=== PATIENT | female | born 1995 | race Caucasian/White ===

== ENCOUNTER 2017-08-17 09:11 | Emergency (ER) | payer OTHER ==
[~2017-08-17] VITALS: Ht 160 cm; Wt 120.2 kg
[~2017-08-17 09:11] MED LIST: Catapres0.1 MG PO; METPHE10 PO
[2017-08-17] MEDS ORDERED: Esgic Tablet1 EACH PO (09:59)
[2018-04-03] MEDS ORDERED: PARO20 PO (08:34)
[2018-04-03] MEDS ORDERED: CLON.1 PO (08:34)
[2018-04-03] MEDS ORDERED: BUTALB-ACETAMI1 EAC2 PO (08:35)
[2018-04-03] MEDS ORDERED: BUTALBITAL-ACE1 EACH PO (08:35)
== END 2017-08-17 10:06 | disposition home or self-care (01) ==
LOC: ER 09:11
DX: G43.909 Migraine, unspecified, not intractable, without status migrainosus (principal); J06.9 Acute upper respiratory infection, unspecified; Z79.899 Other long term (current) drug therapy
CPT/HCPCS: 87081; 87430; 99283

== ENCOUNTER 2017-08-24 02:33 | Emergency (ER) | payer OTHER ==
[~2017-08-24] VITALS: Ht 160 cm; Wt 122.5 kg
[~2017-08-24 02:33] MED LIST changes: +Esgic Tablet1 EACH PO
[2017-08-24] MEDS ORDERED: Vibramycin100 MG PO (02:57)
[2018-04-03] MEDS ORDERED: PARO20 PO (08:34)
[2018-04-03] MEDS ORDERED: CLON.1 PO (08:34)
[2018-04-03] MEDS ORDERED: BUTALBITAL-ACE1 EACH PO (08:35)
[2018-04-03] MEDS ORDERED: BUTALB-ACETAMI1 EAC2 PO (08:35)
== END 2017-08-24 03:10 | disposition home or self-care (01) ==
LOC: ER 02:33
DX: N61.1 Abscess of the breast and nipple (principal); F41.9 Anxiety disorder, unspecified; Z79.899 Other long term (current) drug therapy
CPT/HCPCS: 99282

== ENCOUNTER 2017-09-22 11:07 | Emergency (ER) | payer OTHER ==
[~2017-09-22] VITALS: Ht 160 cm; Wt 122.5 kg
[~2017-09-22 11:07] MED LIST changes: +Vibramycin100 MG PO
[2017-09-22 12:24] LABS: Influenza A Negative (NEGATIVE); Influenza B Negative (NEGATIVE)
[2017-09-22] MEDS ORDERED: Cheratussin AC118 ML PO (12:31)
[2017-09-22] MEDS ORDERED: ALBU90OI INH (12:31)
[2017-09-22] MEDS ORDERED: Prednisone20 MG PO (12:31)
[2017-09-22] MEDS ORDERED: Flonase 0.05% N16 GM (12:31)
[2017-09-22] MEDS ORDERED: Sudogest30 MG PO (12:31)
[2017-09-22] MEDS ORDERED: ONDA4ODT MM (12:31)
[2018-04-03] MEDS ORDERED: CLON.1 PO (08:34)
[2018-04-03] MEDS ORDERED: PARO20 PO (08:34)
[2018-04-03] MEDS ORDERED: BUTALB-ACETAMI1 EAC2 PO (08:35)
[2018-04-03] MEDS ORDERED: BUTALBITAL-ACE1 EACH PO (08:35)
== END 2017-09-22 12:44 | disposition home or self-care (01) ==
LOC: ER 11:07
PROVIDERS: Physician Assistant
DX: J20.9 Acute bronchitis, unspecified (principal); F41.9 Anxiety disorder, unspecified; Z79.899 Other long term (current) drug therapy
CPT/HCPCS: 71046; 87804; 94640; 99283

== ENCOUNTER 2017-11-05 08:24 | Emergency (ER) | payer OTHER ==
[~2017-11-05] VITALS: Ht 162.6 cm; Wt 124.7 kg
[~2017-11-05 08:24] MED LIST changes: +ALBU90OI INH; +Cheratussin AC118 ML PO; +Flonase 0.05% N16 GM; +ONDA4ODT MM; +Prednisone20 MG PO; +Sudogest30 MG PO
[2017-11-05] MEDS ORDERED: BIRTH CONTROL (08:52)
[2017-11-05] MEDS ORDERED: IBUP800 PO (09:44)
[2018-04-03] MEDS ORDERED: CLON.1 PO (08:34)
[2018-04-03] MEDS ORDERED: PARO20 PO (08:34)
[2018-04-03] MEDS ORDERED: BUTALB-ACETAMI1 EAC2 PO (08:35)
[2018-04-03] MEDS ORDERED: BUTALBITAL-ACE1 EACH PO (08:35)
== END 2017-11-05 09:51 | disposition home or self-care (01) ==
LOC: ER 08:24
DX: M77.11 Lateral epicondylitis, right elbow (principal); F41.9 Anxiety disorder, unspecified; Z79.899 Other long term (current) drug therapy
CPT/HCPCS: 73080; 99283

== ENCOUNTER 2017-11-13 02:31 | Emergency (ER) | payer OTHER ==
[~2017-11-13] VITALS: Ht 162.6 cm; Wt 126.1 kg
[~2017-11-13 02:31] MED LIST changes: +BIRTH CONTROL; +IBUP800 PO
[2017-11-13] MEDS ORDERED: Zithromax250 MG PO (03:09)
[2017-11-13] MEDS ORDERED: ROBITUSSIN COU237 ML PO (03:46)
[2018-04-03] MEDS ORDERED: PARO20 PO (08:34)
[2018-04-03] MEDS ORDERED: CLON.1 PO (08:34)
[2018-04-03] MEDS ORDERED: BUTALB-ACETAMI1 EAC2 PO (08:35)
[2018-04-03] MEDS ORDERED: BUTALBITAL-ACE1 EACH PO (08:35)
== END 2017-11-13 03:54 | disposition home or self-care (01) ==
LOC: ER 02:31
DX: R05 Cough (principal); F41.9 Anxiety disorder, unspecified; Z79.899 Other long term (current) drug therapy
CPT/HCPCS: 71046; 94640; 99283; J1100

== ENCOUNTER 2017-11-19 21:24 | Emergency (ER) | payer OTHER ==
[~2017-11-19] VITALS: Ht 162.6 cm; Wt 122.5 kg
[~2017-11-19 21:24] MED LIST changes: +ROBITUSSIN COU237 ML PO; +Zithromax250 MG PO
[2017-11-19] MEDS ORDERED: BIRTH CONTROL (21:28)
[2017-11-19] MEDS ORDERED: Keflex500 MG PO (23:21)
== END 2017-11-19 23:31 | disposition home or self-care (01) ==
LOC: ER 21:24
DX: N76.6 Ulceration of vulva (principal); L73.9 Follicular disorder, unspecified; Z79.2 Long term (current) use of antibiotics
CPT/HCPCS: 99284

== ENCOUNTER 2018-04-08 10:44 | Day surgery (SDC) | payer OTHER ==
[~2018-04-08] VITALS: Ht 160 cm; Wt 129.2 kg
[~2018-04-08 10:44] MED LIST changes: +BUTALB-ACETAMI1 EAC2 PO; +BUTALBITAL-ACE1 EACH PO; +CLON.1 PO; +Keflex500 MG PO; +PARO20 PO
[2018-04-08] MEDS ORDERED: BIOTIN5000 MCG PO (11:18)
== END 2018-04-08 13:33 | disposition home or self-care (01) ==
LOC: ORSCMMR 10:44 → ORD 12:00 → ORSCMMR 12:00
PROVIDERS: Student in an Organized Health Care Education/Training Program
PROC: 0DB98ZX Excision of Duodenum, Via Natural or Artificial Opening Endoscopic, Diagnostic (ICD-10-PCS; principal; 2018-04-08 12:00)
PROC: 0DB58ZX Excision of Esophagus, Via Natural or Artificial Opening Endoscopic, Diagnostic (ICD-10-PCS; principal; 2018-04-08 12:00)
PROC: 0DB68ZX Excision of Stomach, Via Natural or Artificial Opening Endoscopic, Diagnostic (ICD-10-PCS; principal; 2018-04-08 12:00)
DX: K21.9 Gastro-esophageal reflux disease without esophagitis (principal); K29.40 Chronic atrophic gastritis without bleeding; R13.10 Dysphagia, unspecified; R19.7 Diarrhea, unspecified; F41.9 Anxiety disorder, unspecified; F90.9 Attention-deficit hyperactivity disorder, unspecified type; F40.00 Agoraphobia, unspecified; F32.9 Major depressive disorder, single episode, unspecified; Z79.899 Other long term (current) drug therapy; E66.01 Morbid (severe) obesity due to excess calories; Z68.43 Body mass index [BMI] 50.0-59.9, adult
CPT/HCPCS: 88305; 88342; J7120

== ENCOUNTER → 2018-04-11 | Outpatient (CLI) | payer OTHER ==
[~2018-04-11] MED LIST changes: +BIOTIN5000 MCG PO
[2018-04-12 10:15] LABS: Adenovirus F 40/41 Not Detected (NOT DETECT); Astrovirus Not Detected (NOT DETECT); Campylobacter Sp Not Detected (NOT DETECT); Cryptosporidium Not Detected (NOT DETECT); Cyclospora Cayetanensis Not Detected (NOT DETECT); E. Coli O157 Not Detected (NOT DETECT); Entamoeba Histolytica Not Detected (NOT DETECT); Enteroaggregative E. coli-EAEC Not Detected (NOT DETECT); Enteropathogenic E. coli-EPEC Not Detected (NOT DETECT); Enterotoxigenic E. coli-ETEC Not Detected (NOT DETECT); Giardia Lamblia Not Detected (NOT DETECT); Norovirus GI/GII Not Detected (NOT DETECT); Plesiomonas Shigelloides Not Detected (NOT DETECT); Rotavirus A Not Detected (NOT DETECT); Salmonella Sp Not Detected (NOT DETECT); Sapovirus Not Detected (NOT DETECT); Shiga Toxin-prod E. coli-STEC Not Detected (NOT DETECT); Shigella/Enteroin E. coli-EIEC Not Detected (NOT DETECT); Vibrio Cholerae Not Detected (NOT DETECT); Vibrio Sp Not Detected (NOT DETECT); Yersinia Enterocolitica Not Detected (NOT DETECT)
== END | disposition home or self-care (01) ==
LOC: LAB SHORT 18:50 → LAB 18:50 → LAB SHORT 04-12 10:03
PROVIDERS: Student in an Organized Health Care Education/Training Program
DX: R19.7 Diarrhea, unspecified (principal); R10.9 Unspecified abdominal pain
CPT/HCPCS: 87507

== ENCOUNTER → 2018-04-29 | Outpatient (CLI) | payer OTHER | END | disposition home or self-care (01) | LOC: LAB SHORT 07:46 → LAB 07:46 → EDSTATUS 04-11 13:40 → LAB FUT 04-11 13:40 | DX: R10.9 Unspecified abdominal pain (principal); K52.9 Noninfective gastroenteritis and colitis, unspecified | CPT/HCPCS: 87177; 87209 ==

== ENCOUNTER 2018-05-26 15:03 | Emergency (ER) | payer OTHER ==
[~2018-05-26] VITALS: Ht 160 cm; Wt 150.0 kg
[2018-05-26 16:00] LABS: Source, Urine Clean Catch
[2018-05-26 16:08] LABS: Bilirubin, Urine Neg (Neg); Blood, Urine 5+ (Neg); Glucose Qualitative, Urine Neg (Neg); Ketones, Urine Neg (Neg); Leukocyte Esterase, Urine 3+ (Neg); Nitrite, Urine Pos (Neg); Protein, Urine 3+ (Neg); Urobilinogen, Urine NORM (Normal)
[2018-05-26 16:24] LABS: Appearance, Urine Cloudy (Clear); Color, Urine Yellow (P-Yellow)
[2018-05-26 16:26] LABS: Red Blood Cells, Urine TNTC /hpf (0-2); White Blood Cells, Urine TNTC /hpf (0-5)
[2018-05-26 16:27] LABS: Bacteria Mod /hpf; Squamous Epithelial Cells Not Seen /hpf (Few)
[2018-05-26] MEDS ORDERED: CEPH500 PO (16:29)
[2018-05-26] MEDS ORDERED: Pyridium200 MG PO (16:29)
== END 2018-05-26 16:38 | disposition home or self-care (01) ==
LOC: ER 15:03
PROVIDERS: Physician Assistant
DX: N39.0 Urinary tract infection, site not specified (principal); Z79.899 Other long term (current) drug therapy; F41.9 Anxiety disorder, unspecified
CPT/HCPCS: 81001; 81025; 87077; 87086; 87186; 99283; J0696

== ENCOUNTER 2019-07-07 02:31 | Emergency (ER) | payer OTHER ==
[~2019-07-07] VITALS: Ht 160 cm; Wt 142.9 kg
[~2019-07-07 02:31] MED LIST changes: +CEPH500 PO; +Pyridium200 MG PO
[2019-07-07] MEDS ORDERED: SUMA25 PO (03:31)
== END 2019-07-07 06:23 | disposition home or self-care (01) ==
LOC: ER 02:31
DX: G43.909 Migraine, unspecified, not intractable, without status migrainosus (principal); Z79.899 Other long term (current) drug therapy
CPT/HCPCS: 70450; 96374; 96375; 99284-25; J1100; J1200; J1885; J2765

== ENCOUNTER 2019-10-10 15:15 | Emergency (ER) | payer OTHER ==
[~2019-10-10] VITALS: Ht 160 cm; Wt 127.0 kg
[~2019-10-10 15:15] MED LIST changes: +SUMA25 PO
== END 2019-10-10 16:24 | disposition left against medical advice (07) ==
LOC: ER 15:15
DX: Z53.21 Procedure and treatment not carried out due to patient leaving prior to being seen by health care provider (principal)
CPT/HCPCS: 99282

== ENCOUNTER 2021-07-28 09:13 | Emergency (ER) | payer OTHER ==
[~2021-07-28] VITALS: Ht 160 cm; Wt 166.9 kg
[2021-07-28 10:31] LABS: BASOPHILS ABSOLUTE AUTO 0.09 K/mm3 (0.00-0.23); BASOPHILS PERCENT AUTO 1 % (0-2); EOSINOPHILS PERCENT AUTO 3 % (0-6); Hematocrit 43.9 % (33.0-51.0); Hemoglobin 14.3 g/dL (11.5-16.0); IMMATURE GRAN ABSOLUTE AUTO 0.03 K/mm3 (0.00-0.10); IMMATURE GRAN PERCENT AUTO 0 % (0-1); LYMPHOCYTES ABSOLUTE AUTO 2.67 K/mm3 (0.84-5.20); LYMPHOCYTES PERCENT AUTO 28 % (21-46); MONOCYTES ABSOLUTE AUTO 0.59 K/mm3 (0.16-1.47); MONOCYTES PERCENT AUTO 6 % (4-13); Mean Corpuscular HGB 29.8 pg (26.0-34.0); Mean Corpuscular HGB Conc 32.6 g/dL (31.5-36.5); Mean Corpuscular Volume 92 fL (80-100); NEUTROPHILS ABSOLUTE AUTO 5.99 K/mm3 (1.96-9.15); NEUTROPHILS PERCENT AUTO 62 % (41-73); Platelet Count 362 K/mm3 (150-400); RDW Coefficient Variation 13.9 % (11.7-14.2); RDW Standard Deviation 46.7 fL (35.1-46.3); White Blood Cell Count 9.67 K/mm3 (4.00-11.30)
[2021-07-28 11:19] LABS: Alanine Aminotransfer (ALT/SGP 55 U/L (12-78); Albumin, Blood 3.2 g/dL (3.4-5.0); Albumin/Globulin Ratio 0.8 (0.8-1.8); Alk Phos 58 U/L (50-136); Anion Gap 7 mmol/L (6-16); Aspartate Aminotrans (AST/SGOT 36 U/L (12-37); Bilirubin, Total 0.5 mg/dL (0.1-1.0); Blood Urea Nitrogen 9 mg/dL (8-24); Bun/Creatinine Ratio 14.5 (12.0-20.0); CO2, Blood 23 mmol/L (21-32); Calcium, Blood 8.8 mg/dL (8.5-10.1); Chloride, Blood 109 mmol/L (98-108); Creatinine, Blood 0.62 mg/dL (0.40-1.00); Glomerular Filtration Rate >60 (60-); Glucose, Blood 122 mg/dL (70-99); Potassium, Blood 3.7 mmol/L (3.5-5.5); Sodium, Blood 139 mmol/L (136-145); Total Protein, Blood 7.2 g/dL (6.4-8.2)
== END 2021-07-28 12:22 | disposition home or self-care (01) ==
LOC: ER 09:13
PROVIDERS: Emergency Medicine
DX: R51.9 Headache, unspecified (principal); E28.2 Polycystic ovarian syndrome; T38.1X5A Adverse effect of thyroid hormones and substitutes, initial encounter; T38.5X5A Adverse effect of other estrogens and progestogens, initial encounter
CPT/HCPCS: 36415; 80053; 82607; 82746; 84443; 85025; 96374; 99284-25; J1885

== ENCOUNTER → 2022-01-08 | Outpatient (CLI) | payer OTHER ==
[~2022-01-08] MED LIST changes: +AMOCLA875 PO; +BENZ100A PO; +CATAPRES0.1 MG PO; +COUGH MED PO; +TOPI100 PO
== END | disposition home or self-care (01) ==
LOC: LAB 13:30 → LAB SHORT 13:30
DX: L73.2 Hidradenitis suppurativa (principal)
CPT/HCPCS: 87070; 87075; 87205

== ENCOUNTER 2022-03-24 12:38 | Emergency (ER) | payer OTHER ==
[~2022-03-24] VITALS: Ht 167.6 cm; Wt 158.8 kg
[2022-03-25] MEDS ORDERED: DOXY100 PO (00:45)
[2022-03-25] MEDS ORDERED: AMOCLA875 PO (00:45)
== END 2022-03-24 15:45 | disposition left against medical advice (07) ==
LOC: ER 12:38
DX: R50.9 Fever, unspecified (principal); R05.9 Cough, unspecified; R51.9 Headache, unspecified; Z53.21 Procedure and treatment not carried out due to patient leaving prior to being seen by health care provider
CPT/HCPCS: 99281

== ENCOUNTER → 2022-12-14 | Outpatient (CLI) | payer OTHER ==
[~2022-12-14] MED LIST changes: +DOXY100 PO
== END | disposition home or self-care (01) ==
LOC: LAB SHORT 18:53 → LAB 18:53
DX: R22.41 Localized swelling, mass and lump, right lower limb (principal)
CPT/HCPCS: 85379

== ENCOUNTER 2023-09-14 13:28 | Emergency (ER) | payer OTHER ==
[~2023-09-14] VITALS: Ht 160 cm; Wt 181.4 kg
[2023-09-14 14:11] LABS: BASOPHILS ABSOLUTE AUTO 0.09 K/mm3 (0.00-0.23); BASOPHILS PERCENT AUTO 1 % (0-2); EOSINOPHILS ABSOLUTE AUTO 0.28 K/mm3 (0.00-0.68); EOSINOPHILS PERCENT AUTO 2 % (0-6); Hemoglobin 13.8 g/dL (11.5-16.0); IMMATURE GRAN ABSOLUTE AUTO 0.05 K/mm3 (0.00-0.10); IMMATURE GRAN PERCENT AUTO 0 % (0-1); LYMPHOCYTES ABSOLUTE AUTO 2.94 K/mm3 (0.84-5.20); LYMPHOCYTES PERCENT AUTO 25 % (21-46); MONOCYTES ABSOLUTE AUTO 0.84 K/mm3 (0.16-1.47); MONOCYTES PERCENT AUTO 7 % (4-13); Mean Corpuscular HGB 28.4 pg (26.0-34.0); Mean Corpuscular HGB Conc 32.1 g/dL (31.5-36.5); Mean Corpuscular Volume 89 fL (80-100); Mean Platelet Volume 9.6 fL (9.1-12.4); NEUTROPHILS ABSOLUTE AUTO 7.46 K/mm3 (1.96-9.15); NEUTROPHILS PERCENT AUTO 64 % (41-73); Platelet Count 351 K/mm3 (150-400); RDW Coefficient Variation 14.6 % (11.7-14.2); RDW Standard Deviation 46.5 fL (35.1-46.3); Red Blood Cell Count 4.86 M/mm3 (3.80-5.20); White Blood Cell Count 11.66 K/mm3 (4.00-11.30)
[2023-09-14 14:37] LABS: Albumin, Blood 3.4 g/dL (3.4-5.0); Albumin/Globulin Ratio 0.8 (0.8-1.8); Bilirubin, Total 1.2 mg/dL (0.1-1.0); Bun/Creatinine Ratio 17.5 (12.0-20.0); C-REACTIVE PROTEIN, EXT RANGE 1.49 mg/dL (0.000-0.300); Calcium, Blood 9.5 mg/dL (8.5-10.1); Creatinine, Blood 0.51 mg/dL (0.40-1.00); Globulin, Blood 4.5 g/dL (2.2-4.0); Magnesium, Blood 2.3 mg/dL (1.6-2.4); Potassium, Blood 4.2 mmol/L (3.5-5.5); Total Protein, Blood 7.9 g/dL (6.4-8.2)
[2023-09-14 16:33] VITALS: BP 131/95
== END 2023-09-14 16:34 | disposition home or self-care (01) ==
LOC: ER 13:28
PROVIDERS: Physician Assistant
DX: H53.8 Other visual disturbances (principal); Z88.8 Allergy status to other drugs, medicaments and biological substances; Z79.899 Other long term (current) drug therapy
CPT/HCPCS: 70450; 80053; 83735; 85025; 86140; 99284-25

== ENCOUNTER 2023-09-28 19:11 | Emergency (ER) | payer OTHER ==
[~2023-09-28] VITALS: Ht 160 cm; Wt 181.4 kg
[2023-09-28 19:33] VITALS: BP 157/100
[2023-09-28 20:22] LABS: Influenza A, PCR NEGATIVE (NEGATIVE); Influenza B, PCR NEGATIVE (NEGATIVE); Resp Syncytial Virus, PCR NEGATIVE (NEGATIVE); SARS-Cov-2 (COVID-19) PCR, MMC NEGATIVE (NEGATIVE)
== END 2023-09-28 22:18 | disposition left against medical advice (07) ==
LOC: ER 19:11
PROVIDERS: Student in an Organized Health Care Education/Training Program
DX: R51.9 Headache, unspecified (principal); R05.9 Cough, unspecified; Z53.21 Procedure and treatment not carried out due to patient leaving prior to being seen by health care provider
CPT/HCPCS: 0241U; 71046; 99282-25

== ENCOUNTER 2023-10-02 14:44 | Emergency (ER) | payer OTHER ==
[~2023-10-02] VITALS: Ht 160 cm; Wt 184.9 kg
[2023-10-02 15:51] LABS: BASOPHILS ABSOLUTE AUTO 0.13 K/mm3 (0.00-0.23); BASOPHILS PERCENT AUTO 1 % (0-2); EOSINOPHILS ABSOLUTE AUTO 0.39 K/mm3 (0.00-0.68); EOSINOPHILS PERCENT AUTO 3 % (0-6); Hematocrit 44.6 % (33.0-51.0); Hemoglobin 13.9 g/dL (11.5-16.0); IMMATURE GRAN ABSOLUTE AUTO 0.29 K/mm3 (0.00-0.10); IMMATURE GRAN PERCENT AUTO 2 % (0-1); LYMPHOCYTES PERCENT AUTO 20 % (21-46); MONOCYTES ABSOLUTE AUTO 0.68 K/mm3 (0.16-1.47); MONOCYTES PERCENT AUTO 5 % (4-13); Mean Corpuscular HGB Conc 31.2 g/dL (31.5-36.5); Mean Corpuscular Volume 90 fL (80-100); Mean Platelet Volume 9.4 fL (9.1-12.4); NEUTROPHILS ABSOLUTE AUTO 10.49 K/mm3 (1.96-9.15); NEUTROPHILS PERCENT AUTO 71 % (41-73); NRBC ABSOLUTE 0.07 K/mm3 (0.00-0.02); NRBC Auto 0.5 /100 WBC (0.0-0.2); Platelet Count 376 K/mm3 (150-400); RDW Coefficient Variation 15.1 % (11.7-14.2); RDW Standard Deviation 48.7 fL (35.1-46.3); Red Blood Cell Count 4.97 M/mm3 (3.80-5.20); White Blood Cell Count 14.88 K/mm3 (4.00-11.30)
[2023-10-02 16:14] LABS: Alanine Aminotransfer (ALT/SGP 43 U/L (12-78); Albumin, Blood 3.1 g/dL (3.4-5.0); Albumin/Globulin Ratio 0.7 (0.8-1.8); Alk Phos 81 U/L (50-136); Anion Gap Unable to Calculate mmol/L (6-16); Aspartate Aminotrans (AST/SGOT 39 U/L (12-37); Bilirubin, Total 0.8 mg/dL (0.1-1.0); Blood Urea Nitrogen 10 mg/dL (8-24); Bun/Creatinine Ratio 17.3 (12.0-20.0); CO2, Blood 38 mmol/L (21-32); Calcium, Blood 9.5 mg/dL (8.5-10.1); Chloride, Blood 100 mmol/L (98-108); Creatinine, Blood 0.58 mg/dL (0.40-1.00); Globulin, Blood 4.5 g/dL (2.2-4.0); Glomerular Filtration Rate 126 (60-); Glucose, Blood 130 mg/dL (70-99); Sodium, Blood 136 mmol/L (136-145); Total Protein, Blood 7.6 g/dL (6.4-8.2)
[2023-10-02 18:10] VITALS: BP 138/99
== END 2023-10-02 18:12 | disposition home or self-care (01) ==
LOC: ER 14:44
PROVIDERS: Physician Assistant
DX: H47.10 Unspecified papilledema (principal); Z88.8 Allergy status to other drugs, medicaments and biological substances; Z88.1 Allergy status to other antibiotic agents
CPT/HCPCS: 80053; 85025; 85651; 86140; 99284

== ENCOUNTER 2024-11-24 04:48 | Emergency (ER) | payer OTHER ==
[~2024-11-24] VITALS: Ht 160 cm; Wt 149.7 kg
[2024-11-24 04:56] VITALS: BP 151/90
[2024-11-24] MEDS ORDERED: Metoclopramide HCl 5MG / ML 2ML Vial IV ONE (06:00)
[2024-11-24] MEDS ORDERED: Ketorolac Tromethamine 30mg Vial IV ONE (06:00)
[2024-11-24] MEDS ORDERED: NS 1,000 ML IV SCH (06:00)
[2024-11-24] MEDS ORDERED: METO10 PO (07:00)
== END 2024-11-24 07:15 | disposition home or self-care (01) ==
LOC: ER 04:48
DX: J02.0 Streptococcal pharyngitis (principal); G43.909 Migraine, unspecified, not intractable, without status migrainosus; Z88.1 Allergy status to other antibiotic agents; Z88.8 Allergy status to other drugs, medicaments and biological substances
CPT/HCPCS: 87430; 96374; 96375; 99284-25; J1885; J2765; J7030